=== PATIENT | male | born 1985 | race Caucasian/White ===

== ENCOUNTER 2020-11-19 21:15 | Emergency (ER) | payer OTHER ==
[~2020-11-19] VITALS: Ht 185.4 cm; Wt 81.7 kg
[~2020-11-19 21:15] MED LIST: BUPR150T2 PO; BUPR75; CLON1; CLON1 PO; IBUP800 PO; OLAN7.5; OXYACE5T PO; PENVK250 PO; QUET25; QUET25 PO; RXALBOI INH; RXCODGUASY PO; SAPHRIS2.5 MG; TRAM50 PO; [UNRECOGNIZED DRUG - REMARK]
[2020-11-19 23:03] LABS: BASOPHILS ABSOLUTE AUTO 0.02 K/mm3 (0.00-0.23); BASOPHILS PERCENT AUTO 0 % (0-2); EOSINOPHILS ABSOLUTE AUTO 0.34 K/mm3 (0.00-0.68); EOSINOPHILS PERCENT AUTO 3 % (0-6); Hematocrit 40.6 % (37.0-53.0); Hemoglobin 13.7 g/dL (13.5-17.5); IMMATURE GRAN ABSOLUTE AUTO 0.03 K/mm3 (0.00-0.10); IMMATURE GRAN PERCENT AUTO 0 % (0-1); LYMPHOCYTES ABSOLUTE AUTO 2.96 K/mm3 (0.84-5.20); LYMPHOCYTES PERCENT AUTO 25 % (21-46); MONOCYTES ABSOLUTE AUTO 0.99 K/mm3 (0.16-1.47); MONOCYTES PERCENT AUTO 8 % (4-13); Mean Corpuscular HGB 32.8 pg (26.0-34.0); Mean Corpuscular HGB Conc 33.7 g/dL (31.5-36.5); Mean Corpuscular Volume 97 fL (80-100); Mean Platelet Volume 9.7 fL (9.1-12.4); NEUTROPHILS ABSOLUTE AUTO 7.61 K/mm3 (1.96-9.15); NEUTROPHILS PERCENT AUTO 64 % (41-73); Platelet Count 298 K/mm3 (150-400); RDW Coefficient Variation 12.8 % (11.7-14.2); RDW Standard Deviation 45.7 fL (35.1-46.3); Red Blood Cell Count 4.18 M/mm3 (4.30-5.90); White Blood Cell Count 11.95 K/mm3 (4.00-11.30)
[2020-11-19 23:23] LABS: Alanine Aminotransfer (ALT/SGP 25 U/L (12-78); Albumin, Blood 3.4 g/dL (3.4-5.0); Albumin/Globulin Ratio 0.8 (0.8-1.8); Alk Phos 113 U/L (50-136); Anion Gap 3 mmol/L (6-16); Aspartate Aminotrans (AST/SGOT 25 U/L (12-37); Bilirubin, Total 0.3 mg/dL (0.1-1.0); Blood Urea Nitrogen 16 mg/dL (8-24); Bun/Creatinine Ratio 15.7 (12.0-20.0); CO2, Blood 28 mmol/L (21-32); Calcium, Blood 9.1 mg/dL (8.5-10.1); Chloride, Blood 109 mmol/L (98-108); Creatinine, Blood 1.02 mg/dL (0.60-1.20); Glomerular Filtration Rate >60 (60-); Glucose, Blood 94 mg/dL (70-99); Potassium, Blood 4.8 mmol/L (3.5-5.5); Sodium, Blood 140 mmol/L (136-145); Total Protein, Blood 7.4 g/dL (6.4-8.2)
[2020-11-20] MEDS ORDERED: AMOCLA875 PO (01:11)
== END 2020-11-20 01:26 | disposition home or self-care (01) ==
LOC: ER 21:15
PROVIDERS: Physician Assistant
DX: L02.11 Cutaneous abscess of neck (principal); Z88.6 Allergy status to analgesic agent
CPT/HCPCS: 10060; 36415; 70491; 76536; 80053; 85025; 96365-59; 99284-25; J0295; Q9967

== ENCOUNTER 2021-08-01 15:47 | Emergency (ER) | payer OTHER ==
[~2021-08-01] VITALS: Ht 185.4 cm; Wt 88.5 kg
[~2021-08-01 15:47] MED LIST changes: +AMOCLA875 PO
[2021-08-01] MEDS ORDERED: MUPIROCIN1 GM TOP (17:07)
[2021-08-01] MEDS ORDERED: Monodox100 MG PO (17:07)
== END 2021-08-01 17:19 | disposition home or self-care (01) ==
LOC: ER 15:47
DX: A49.02 Methicillin resistant Staphylococcus aureus infection, unspecified site (principal); F17.200 Nicotine dependence, unspecified, uncomplicated
CPT/HCPCS: 99282

== ENCOUNTER 2021-08-02 17:04 | Emergency (ER) | payer OTHER ==
[~2021-08-02] VITALS: Ht 185.4 cm; Wt 88.5 kg
[~2021-08-02 17:04] MED LIST changes: +MUPIROCIN1 GM TOP; +Monodox100 MG PO
[2021-08-02 17:59] LABS: BASOPHILS ABSOLUTE AUTO 0.02 K/mm3 (0.00-0.23); BASOPHILS PERCENT AUTO 0 % (0-2); EOSINOPHILS ABSOLUTE AUTO 0.53 K/mm3 (0.00-0.68); EOSINOPHILS PERCENT AUTO 4 % (0-6); Hematocrit 40.2 % (37.0-53.0); Hemoglobin 13.5 g/dL (13.5-17.5); IMMATURE GRAN ABSOLUTE AUTO 0.03 K/mm3 (0.00-0.10); IMMATURE GRAN PERCENT AUTO 0 % (0-1); LYMPHOCYTES ABSOLUTE AUTO 1.53 K/mm3 (0.84-5.20); LYMPHOCYTES PERCENT AUTO 10 % (21-46); MONOCYTES ABSOLUTE AUTO 0.88 K/mm3 (0.16-1.47); MONOCYTES PERCENT AUTO 6 % (4-13); Mean Corpuscular HGB 32.4 pg (26.0-34.0); Mean Corpuscular HGB Conc 33.6 g/dL (31.5-36.5); Mean Corpuscular Volume 96 fL (80-100); Mean Platelet Volume 9.8 fL (9.1-12.4); NEUTROPHILS ABSOLUTE AUTO 11.92 K/mm3 (1.96-9.15); NEUTROPHILS PERCENT AUTO 80 % (41-73); Platelet Count 286 K/mm3 (150-400); RDW Coefficient Variation 12.6 % (11.7-14.2); RDW Standard Deviation 45.1 fL (35.1-46.3); Red Blood Cell Count 4.17 M/mm3 (4.30-5.90); White Blood Cell Count 14.91 K/mm3 (4.00-11.30)
[2021-08-02 18:04] LABS: Alanine Aminotransfer (ALT/SGP 33 U/L (12-78); Albumin, Blood 3.4 g/dL (3.4-5.0); Alk Phos 106 U/L (50-136); Anion Gap 5 mmol/L (6-16); Aspartate Aminotrans (AST/SGOT 26 U/L (12-37); Bilirubin, Total 0.4 mg/dL (0.1-1.0); Blood Urea Nitrogen 13 mg/dL (8-24); Bun/Creatinine Ratio 15.7 (12.0-20.0); CO2, Blood 26 mmol/L (21-32); Calcium, Blood 8.9 mg/dL (8.5-10.1); Chloride, Blood 105 mmol/L (98-108); Creatinine, Blood 0.83 mg/dL (0.60-1.20); Globulin, Blood 3.5 g/dL (2.2-4.0); Glomerular Filtration Rate >60 (60-); Glucose, Blood 146 mg/dL (70-99); Potassium, Blood 3.8 mmol/L (3.5-5.5); Sodium, Blood 136 mmol/L (136-145); Total Protein, Blood 6.9 g/dL (6.4-8.2)
== END 2021-08-03 00:20 | disposition home or self-care (01) ==
LOC: ER 17:04
PROVIDERS: Physician Assistant
DX: J34.0 Abscess, furuncle and carbuncle of nose (principal); R00.0 Tachycardia, unspecified; F17.200 Nicotine dependence, unspecified, uncomplicated; Z88.6 Allergy status to analgesic agent
CPT/HCPCS: 36415; 80053; 85025; 96365; 96366; 96375; 99283-25; J1885; J3370; J7030; J7050

== ENCOUNTER 2025-01-18 22:49 | Emergency (ER) | payer OTHER ==
[~2025-01-18] VITALS: Ht 185.4 cm; Wt 81.7 kg
[2025-01-18] MEDS ORDERED: CeFAZolin Sodium 1,000 MG in NS 50 ML IV ONE (23:00)
[2025-01-18 23:05] LABS: BASOPHILS ABSOLUTE AUTO 0.04 K/mm3 (0.00-0.23); BASOPHILS PERCENT AUTO 1 % (0-2); EOSINOPHILS ABSOLUTE AUTO 0.45 K/mm3 (0.00-0.68); EOSINOPHILS PERCENT AUTO 6 % (0-6); Hematocrit 39.3 % (37.0-53.0); Hemoglobin 13.4 g/dL (13.5-17.5); IMMATURE GRAN ABSOLUTE AUTO 0.01 K/mm3 (0.00-0.10); IMMATURE GRAN PERCENT AUTO 0 % (0-1); LYMPHOCYTES ABSOLUTE AUTO 2.61 K/mm3 (0.84-5.20); LYMPHOCYTES PERCENT AUTO 34 % (21-46); MONOCYTES ABSOLUTE AUTO 0.68 K/mm3 (0.16-1.47); MONOCYTES PERCENT AUTO 9 % (4-13); Mean Corpuscular HGB Conc 34.1 g/dL (31.5-36.5); Mean Corpuscular Volume 95 fL (80-100); NEUTROPHILS ABSOLUTE AUTO 3.96 K/mm3 (1.96-9.15); NEUTROPHILS PERCENT AUTO 51 % (41-73); NRBC ABSOLUTE 0.00 K/mm3 (0.00-0.02); NRBC Auto 0.0 /100 WBC (0.0-0.2); Platelet Count 277 K/mm3 (150-400); RDW Coefficient Variation 12.7 % (11.7-14.2); RDW Standard Deviation 44.1 fL (35.1-46.3)
[2025-01-18 23:20] LABS: Anion Gap 5 mmol/L (3-11); Blood Urea Nitrogen 15 mg/dL (8-24); CO2, Blood 28 mmol/L (21-32); Calcium, Blood 8.7 mg/dL (8.5-10.1); Chloride, Blood 109 mmol/L (98-108); Creatinine, Blood 1.04 mg/dL (0.60-1.20); Glucose, Blood 135 mg/dL (70-99); Potassium, Blood 4.0 mmol/L (3.5-5.5); Sodium, Blood 138 mmol/L (136-145)
[2025-01-18] MEDS ORDERED: Clindamycin 600mg in D5W 50 ML IV ONE (23:55)
[2025-01-19] MEDS ORDERED: FentaNYL Citrate 50 MCG/ML 2 ML Injection IV ONE (00:20)
[2025-01-19] MEDS ORDERED: CEPH500 PO (02:57)
[2025-01-19] MEDS ORDERED: IBU600 MG PO (02:57)
[2025-01-19 03:03] VITALS: BP 103/62
== END 2025-01-19 03:04 | disposition home or self-care (01) ==
LOC: ER 22:49
PROVIDERS: Emergency Medicine
DX: S61.412A Laceration without foreign body of left hand, initial encounter (principal); F17.200 Nicotine dependence, unspecified, uncomplicated; W01.118A Fall on same level from slipping, tripping and stumbling with subsequent striking against other sharp object, initial encounter; Z88.8 Allergy status to other drugs, medicaments and biological substances
CPT/HCPCS: 12002; 73130; 73201; 80048; 85025; 90715; 96374-59; 96375-59; 99284-25; J0690; Q9967